=== PATIENT | male | born 2000 | race Two or more races ===

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

== ENCOUNTER 2020-01-11 06:43 | Emergency (ER) | payer OTHER ==
[~2020-01-11] VITALS: Ht 170.2 cm; Wt 76.2 kg
[2020-01-11 06:51] VITALS: Ht 170.2 cm; Wt 76.2 kg
[2020-01-11 08:18] VITALS: BP 117/65
== END 2020-01-11 08:18 | disposition home or self-care (01) ==
LOC: ED 06:43
DX: R07.89 Other chest pain (principal); M54.5 Low back pain; F17.210 Nicotine dependence, cigarettes, uncomplicated
CPT/HCPCS: Q0092